=== PATIENT | male | born 1960 | race Caucasian/White ===

== ENCOUNTER 2017-03-02 12:08 | Emergency (ER) | payer SELFPAY ==
[~2017-03-02] VITALS: Ht 167.6 cm; Wt 73.0 kg
[~2017-03-02 12:08] MED LIST: GLUCTAB PO; INSU100V SQ
[2017-03-02 12:09] VITALS: BP 104/66; PULSE 98; RESP 12; TEMP 98.7; O2SAT 97
[2017-03-02] MEDS ORDERED: METF500T PO (12:22)
[2017-03-02] MEDS ORDERED: PENI500T PO (12:31)
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
== END 2017-03-02 13:06 | disposition home or self-care (01) ==
LOC: NEPD 12:08
DX: K05.10 Chronic gingivitis, plaque induced (principal); E11.9 Type 2 diabetes mellitus without complications; I25.2 Old myocardial infarction; H91.91 Unspecified hearing loss, right ear; Z72.0 Tobacco use; Z79.84 Long term (current) use of oral hypoglycemic drugs; Z87.39 Personal history of other diseases of the musculoskeletal system and connective tissue
CPT/HCPCS: 99283